=== PATIENT | female | born 1995 | race Caucasian/White ===

== ENCOUNTER 2023-01-15 16:29 | Inpatient (IN) ==
[2023-01-16] MEDS ORDERED: miSOPROStoL 50 MCG TAB PO ONE ×2 (08:46→13:05)
[2023-01-16] MEDS ORDERED: OXYTOCIN 30 UNITS/NSS 30 UNITS/500 ML BAG IV PRN ×2 (08:46→18:25)
[2023-01-16] MEDS ORDERED: LIDOCAINE 1% LOCAL 20 ML VIAL INFIL PRN (08:46)
[2023-01-16 09:30] LABS: Hematocrit (blood only) 35.3 % (37.0-47.0); Hemoglobin 11.6 g/dl (12.0-16.0); Mean Corpuscular Hemoglobin 29.1 pg (25.0-34.0); Mean Corpuscular Hgb Conc 32.9 g/dL (32.0-36.0); Mean Corpuscular Volume 88.7 fL (80.0-100.0); Mean Platelet Volume 10.9 fL (9.4-12.4); Platelet Count 141 K/uL (130-400); RDW Coefficient of Variation 13.4 % (11.5-14.5); RDW Standard Deviation 43.4 fL (36.4-46.3); Red Blood Count 3.98 M/uL (4.20-5.40); White Blood Count 9.31 K/ul (4.8-10.8)
[2023-01-16] MEDS: LACTATED RINGER'S 1,000 ML IV PRN (18:54)
[2023-01-17] MEDS ORDERED: BUPIVACAINE 0.25% PF 30 ML VIAL ONE (02:14)
[2023-01-17] MEDS ORDERED: fentaNYL citrate PF 100 MCG/2 ML VIAL ONE (02:14)
[2023-01-17] MEDS ORDERED: ePHEDrine sulfate 50 MG/ML AMP ONE (02:14)
[2023-01-17] MEDS ORDERED: SODIUM CHLORIDE 0.9% PF INJ 10 ML VIAL ONE (02:14)
[2023-01-17] MEDS ORDERED: LIDOCAINE 2%/EPINEPHRINE 1:200,000 20 ML PF ONE (02:14)
[2023-01-17] MEDS ORDERED: fentANYL 2 MCG/ML BUPIVacaine 0.125%-NSS 100ML BAG ONE (02:14)
[2023-01-17] MEDS ORDERED: ONDANSETRON INJ 2 MG/ML 2 ML VIAL IV PRN (02:47)
[2023-01-17] MEDS ORDERED: fentANYL 2 MCG/ML BUPIVacaine 0.125%-NSS 100ML BAG EPI PRN (02:47)
[2023-01-17] MEDS ORDERED: NALOXONE HCL 1 MG in SODIUM CHLORIDE 0.9% 1,000 ML IV PRN (02:47)
[2023-01-17] MEDS ORDERED: BUPIVACAINE 0.25% PF 30 ML VIAL EPI STA (02:47)
[2023-01-17] MEDS ORDERED: ePHEDrine sulfate 50 MG/ML AMP IV PRN (02:47)
[2023-01-17] MEDS ORDERED: fentaNYL citrate PF 100 MCG/2 ML VIAL EPI PRN (02:47)
[2023-01-17] MEDS ORDERED: SODIUM CHLORIDE 0.9% PF INJ 10 ML VIAL EPI STA (02:47)
[2023-01-17] MEDS ORDERED: ROPIVACAINE 0.5% PF 5 MG/ML 20 ML VIAL EPI PRN (02:47)
[2023-01-17] MEDS ORDERED: fentaNYL citrate PF 100 MCG/2 ML VIAL EPI STA (02:47)
[2023-01-17] MEDS ORDERED: diphenhydrAMINE 50 MG/ML VIAL IV PRN (02:47)
[2023-01-17] MEDS ORDERED: LIDOCAINE 2% MPF LOCAL 5 ML VIAL EPI PRN (02:47)
[2023-01-17] MEDS ORDERED: SODIUM CHLORIDE 0.9% PF INJ 10 ML VIAL EPI PRN (02:47)
[2023-01-17] MEDS ORDERED: NALOXONE HCL 0.4 MG/1 ML VIAL/CARP IV PRN (02:47)
[2023-01-17] MEDS ORDERED: BUPIVACAINE 0.25% PF 30 ML VIAL EPI PRN (02:47)
[2023-01-17] MEDS ORDERED: NALBUPHINE HCL 5 MG in SYRINGE 0 ML IV PRN (02:47)
[2023-01-17] MEDS ORDERED: LIDOCAINE 2%/EPINEPHRINE 1:200,000 20 ML PF EPI STA (02:47)
--- NOTE | 2023-01-17 02:49 | Anesthesiology Consultation ---
Date of Service January 17, 2023 Assessment & Plan (1) Encounter for pre-operative examination: Chart Review Chart Review: Patient NOT seen in Pre Admission Testing and Acceptable Risk for Labor Epidural Consults Requested none History Height/Weight Height: 5 ft 11 in Weight: 96.162 kg Allergies Allergy/AdvReac Type Severity Reaction Status Date / Time No Known Allergies Allergy Verified 01/16/23 08:10 Medications Home Medications Medication Instructions Recorded Confirmed Last Taken aspirin 81 mg tablet,delayed 81 mg PO DAILY 06/13/22 01/16/23 01/15/23 09:00 release prenat.vits,eliezer,npw-[id number] tab 01/16/23 01/15/23 09:00 Active Medications Generic Name Dose Route Start Last Admin Trade Name Freq PRN Reason Stop Dose Admin Lactated Ringer's 1,000 mls @ 125 mls/hr 01/16/23 08:46 01/17/23 02:53 Lr IV 01/18/23 08:45 999 mls/hr .Q8H PRN Administration L&D Protocol Protocol Oxytocin 30 units in 500 mls @ 10 mls/hr 01/16/23 18:25 01/16/23 22:47 Pitocin 30 Units/Nss IV 01/18/23 18:24 0.6 units/hr .Q24H PRN 10 mls/hr Labor Induction/Augmentation Titration Protocol 0.6 UNITS/HR Past Medical History Medical History (Updated 01/17/23 @ 02:49 by Timur Hartman MD) Encounter for pre-operative examination Antiphospholipid antibody syndrome Exercise / Class Metabolic Activity II 4-5 Yardwork/Stairs/Walk up hill Past Family History Family History Grandmother (Maternal) Breast cancer Grandfather (Paternal) Colorectal cancer Other Dyslipidemia Heart disease Hypertension Denies family history of Ovarian cancer Prostate cancer Clotting disorder Myocardial infarction Past Surgical History Surgical History History of foot surgery right S/P tonsillectomy S/P wisdom tooth extraction S/P dilation and curettage x 2 S/P appendectomy Social History Smoking Status: Never smoker Hx Alcohol Use: No Hx Substance Use: No substance use type: does not use Physical Exam Vital Signs Last Vital Signs Temp 36.9 C 01/17/23 00:51 Pulse 71 01/17/23 03:08 Resp 18 01/17/23 00:51 BP 122/61 01/17/23 03:08 Pulse Ox 100 01/17/23 03:06 Testing Laboratory Results 01/16/23 08:57
[2023-01-17] MEDS: LACTATED RINGER'S 1,000 ML IV PRN ×2 (02:53→07:06)
[2023-01-17] MEDS ORDERED: miSOPROStoL 200 MCG TAB PR ONE (11:26)
[2023-01-17] MEDS ORDERED: BENZOCAINE 20% SPRY 85 APPLN/85 GM CAN EXT PRN (11:26)
[2023-01-17] MEDS ORDERED: ACETAMINOPHEN W/CODEINE #3 1 TAB PO PRN (11:26)
[2023-01-17] MEDS ORDERED: OXYTOCIN 30 UNITS/NSS 30 UNITS/500 ML BAG IV PRN (11:26)
[2023-01-17] MEDS ORDERED: oxyCODONE/ACETAMINOPHEN 5mg/325mg TAB PO PRN (11:26)
[2023-01-17] MEDS ORDERED: HYDROCORTISONE ACETATE 25 MG SUPP PR PRN (11:26)
[2023-01-17] MEDS ORDERED: ACETAMINOPHEN 325 MG TAB PO PRN (11:26)
[2023-01-17] MEDS ORDERED: DIPHTHERIA/TETANUS/PERTUSSIS Vaccine (Tdap, Age 7+yrs) 0.5mL SYR/VL IM ONE (11:26)
[2023-01-17] MEDS ORDERED: bisacodyL 10 MG SUPP PR PRN (11:26)
[2023-01-17] MEDS ORDERED: METHYLERGONOVINE MALEATE 0.2 MG/ML AMP IM ONE (11:26)
--- NOTE | 2023-01-17 11:36 | Delivery Summary ---
Vaginal Delivery Summary Date of Service January 17, 2023 Supervising Physician Co-Signing Physician Notes Patient has been followed in our office for care and delivery. was complicated by antiphospholipid syndrome. She was on heparin for the first 15 weeks of her . She was well dated with a first trimester ultrasound. She was brought in for induction at 41 weeks and 2 days. On admission the cervix was 4 cm dilated and posterior. The vertex presentation at a -2 station. She was given 2 oral doses of p.o. Cytotec 50 Ch. Followed by IV Pitocin. Followed by rupture of membranes which showed meconium stained fluid. She then eventually had an epidural for pain control. Pitocin was titrated up. She will patient in about 1 hour pushed out a live female infant via direct occiput anterior position over an intact perineum. Infant was suctioned through the mouth and the nose after delivery of the head. Shoulders were delivered without difficulty. Cord was allowed to pulse for 1 full minute. Cord was clamped cut by the father. Cord blood was taken. With IV Pitocin running the placenta was removed intact. She was given IM Methergine following the Pitocin. Inspection of the perineum revealed a sulcus laceration at 9:00 in the vaginal opening at about one quarter the way up the vagina. The apex of the laceration was identified. The laceration was repaired with a running heavy Vicryl suture out to beyond the hymenal ring. Following this hemostasis was good. Manual examination removed a large amounts of clots from the vagina. We then administered 800 mcg of rectal Cytotec. This contracted nicely hemostasis was good estimated blood loss 300 mL.
--- NOTE | 2023-01-17 12:02 | Anesthesia Procedure Note ---
Date of Service January 17, 2023 Anesthesia Post Epidural Note Vital Signs Vital Signs: Temp Pulse Resp BP Pulse Ox 36.6 C 77 18 125/58 L 94 01/17/23 11:25 01/17/23 11:55 01/17/23 11:40 01/17/23 11:55 01/17/23 11:21 Notes Mental Status: alert / awake / arousable Nausea / Vomiting: adequately controlled Pain: adequately controlled Airway Patency, RR, SpO2: stable & adequate BP & HR: stable & adequate Hydration State: stable & adequate Neuraxial Anesthesia: was administered and sensory block is resolving Anesthetic Complications: no major complications apparent and Pt Satisfied with anesthetic care Epidural: Removed without complications and With tip intact
[2023-01-17] MEDS ORDERED: METHYLERGONOVINE MALEATE 0.2 MG/ML AMP ONE (14:35)
[2023-01-17] MEDS: IBUPROFEN 600 MG TAB PO PRN (16:56)
[2023-01-17] MEDS: DOCUSATE SODIUM 100 MG CAP PO SCH (20:43)
[2023-01-18 07:57] LABS: Hematocrit (blood only) 30.6 % (37.0-47.0); Hemoglobin 10.4 g/dl (12.0-16.0); Mean Corpuscular Hemoglobin 29.7 pg (25.0-34.0); Mean Corpuscular Volume 87.4 fL (80.0-100.0); Mean Platelet Volume 10.8 fL (9.4-12.4); Platelet Count 145 K/uL (130-400); RDW Coefficient of Variation 13.8 % (11.5-14.5); RDW Standard Deviation 43.2 fL (36.4-46.3); White Blood Count 12.68 K/ul (4.8-10.8)
[2023-01-18] MEDS ORDERED: PRENATAL VITAMIN 1 TAB PO SCH (08:00)
[2023-01-18] MEDS: IBUPROFEN 600 MG TAB PO PRN (08:40)
[2023-01-18] MEDS: DOCUSATE SODIUM 100 MG CAP PO SCH (08:40)
--- NOTE | 2023-01-18 08:55 | Obstetrical Progress Note ---
Date of Service January 18, 2023 Assessment & Plan Admission and Anticipated Discharge Date Admission Date: January 16, 2023 Subjective abdomen soft and non tender no calf tenderness ambulating well vaginal bleeding scant hgb 10.4 Results & Data Vital Signs (Past 12 Hours) Vital Signs Temp Pulse Resp BP Pulse Ox O2 Del Method 01/18/23 03:40 36.6 C 83 16 124/79 97 Room Air 01/17/23 22:49 36.8 C 75 18 114/74 96 Room Air
[2023-01-18] MEDS ORDERED: bisacodyL 5 MG TABEC PO SCH (20:00)
== END 2023-01-18 14:15 | disposition home or self-care (01) | DRG 806 ==
LOC: 4S1 01-16 07:27 → 4E2 01-17 14:45